=== PATIENT | male | born 1955 | race African-American/Black ===

== ENCOUNTER 2018-03-19 15:18 | Emergency (ER) | payer OTHER, BC ==
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
[2018-03-19 15:40] VITALS: BP 154/79; PULSE 79; TEMP 98.3; BMI 34.2
[2018-03-19] MEDS ORDERED: IBUPROFEN 600 MG TABLET (FP) PO ONE ×2 (16:12→16:15)
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
== END 2018-03-19 16:32 | disposition home or self-care (01) ==
LOC: JERFT 15:18
DX: S13.4XXA Sprain of ligaments of cervical spine, initial encounter (principal); V43.62XA Car passenger injured in collision with other type car in traffic accident, initial encounter; Y92.488 Other paved roadways as the place of occurrence of the external cause; Y93.89 Activity, other specified; Y99.8 Other external cause status
CPT/HCPCS: 99281-25